=== PATIENT | male | born 1960 | race Caucasian/White ===

== ENCOUNTER → 2024-05-21 10:15 | Outpatient (REF) | payer OTHER, SELFPAY | LOC: HWRAD 10:15 | PROVIDERS: ATTENDING PHYSICIAN Otolaryngology Plastic Surgery within the Head & Neck; FAMILY PHYSICIAN Family Medicine | DX: D10.6 Benign neoplasm of nasopharynx (principal) | CPT/HCPCS: 70486 ==

== ENCOUNTER → 2025-01-21 07:48 | Outpatient (REF) | payer OTHER, SELFPAY | LOC: PAVMRI 07:48 | PROVIDERS: ATTENDING PHYSICIAN Physician Assistant Medical; FAMILY PHYSICIAN Family Medicine | DX: M54.12 Radiculopathy, cervical region (principal) | CPT/HCPCS: 72141 ==